=== PATIENT | female | born 1980 | race Caucasian/White ===

== ENCOUNTER 2017-06-15 00:29 | Emergency (ER) | payer BC ==
[2017-06-15 01:18] LABS: #Basophils 0.1 thou/uL (0.0-0.2); #Eosinphils 0.3 thou/uL (0.0-0.7); #Lymphocytes 3.4 thou/uL (1.20-3.40); #Monocytes 0.6 thou/uL (0.11-0.59); #Neutrophils 4.4 thou/uL (1.40-6.50); %Basophils 0.9 % (0.0-1.0); %Eosinophils 3.3 % (0.0-10.0); %Lymphocytes 38.6 % (21.0-51.0); %Monocytes 7.3 % (0.0-10.0); Hematocrit 39.1 % (36.0-47.0); Mean Platelet Volume 6.5 fL (7.4-10.4); Red Blood Cell (RBC) Count 4.13 mill/uL (4.20-5.40); White Blood Cell (WBC) Count 8.7 thou/uL (4.8-10.8)
[2017-06-15 01:35] LABS: ALT (SGPT) 10 U/L (8-55); AST (SGOT) 12 U/L (5-34); Alkaline Phosphatase 50 U/L (40-150); Anion Gap 12 mmol/L (10-20); BUN (Urea Nitrogen) 7 mg/dL (7.0-18.7); Bilirubin, Total 0.3 mg/dL (0.2-1.2); Calc. Creatinine Clearance 0 mL/min (70-130); Calcium 8.8 mg/dL (7.8-10.44); Carbon Dioxide 24 mmol/L (22-29); Chloride 107 mmol/L (98-107); Estimated GFR-MDRD 83; Globulin 2.9 g/dL (2.4-3.5); Lipase 12 U/L (8-78); Protein, Total 7.1 g/dL (6.0-8.3)
[2017-06-15 02:56] LABS: Bilirubin Small (Negative); Blood, Urine Negative (Negative); Glucose, Urine (Dipstick) Negative (Negative); Ketone, Urine Negative (Negative); Nitrite Negative (Negative); Protein, Urine (Dipstick) Negative (Neg-Trace); Urobilinogen 0.2 mg/dL (0.2-1.0)
== END 2017-06-15 03:14 | disposition left against medical advice (07) ==
LOC: ERS 00:29
DX: Z53.21 Procedure and treatment not carried out due to patient leaving prior to being seen by health care provider (principal); F31.9 Bipolar disorder, unspecified
CPT/HCPCS: 36415; 80053; 81003; 83690; 85025

== ENCOUNTER 2019-02-02 09:46 | Outpatient (CLI) | payer BC ==
--- NOTE | 2019-02-02 10:19 | ULT ---
EXAM: US Gallbladder RUQ CLINICAL HISTORY: Abdominal pain. COMPARISON: 02/04/2016 FINDINGS: Pancreas: Obscured due to bowel gas Liver:Normal echotexture. No hepatic masses or intrahepatic biliary dilatation. The contour of the he patic margin is maintained. Right hepatic lobe measures 18.1 cm. Portal vein: Patent with appropriate directional flow Gallbladder: No sonographic evidence of cholelithiasis, gallbladder wall thickening or pericholecysti c fluid. Lainez's sign:Negative Bile ducts: Suboptimal evaluation the common bile duct. Right kidney: No hydronephrosis. Right kidney measures 11.4 cm cm in length. IMPRESSION: 1. No sonographic evidence of cholelithiasis or cholecystitis. 2. Suboptimal evaluation the common bile duct. Further evaluation if clinically warranted.
--- NOTE | 2019-02-02 11:22 | RAD ---
Upper GI series with air contrast: 02/02/2019 HISTORY: 38-year-old female with epigastric abdominal pain. TECHNIQUE: Upright administration of effervescent granules, thick liquid barium, and barium tablet with water. Prone MENDOZA straw administration of thin liquid barium. FINDINGS: Approximately 10% of the stomach herniates into the lower chest. Mild gastroesophageal reflux visuali zed. No stricture. Mucosal pattern of the esophagus and stomach, where visible, demonstrates no obvious abnormality. No gastric outlet obstruction. Poor barium coating of duodenal bulb makes it dif ficult to evaluate duodenal bulb. Barium tablet passes rapidly through the esophagus into the stomach. IMPRESSION: 1. Small sliding hiatal hernia with mild gastroesophageal reflux. 2. No stricture.
== END 2019-02-02 09:47 | disposition home or self-care (01) ==
LOC: ULT 09:46
PROVIDERS: ATTEND Family Medicine
DX: R10.9 Unspecified abdominal pain (principal); K44.9 Diaphragmatic hernia without obstruction or gangrene; K21.9 Gastro-esophageal reflux disease without esophagitis
CPT/HCPCS: 74247; 76705

== ENCOUNTER 2020-03-11 09:29 | Outpatient (CLI) | payer BC ==
--- NOTE | 2020-03-11 10:06 | RAD ---
Exam: Lumbar spine 2 views HISTORY: Low back pain. COMPARISON: none FINDINGS: Visualized sacrum and bony pelvis are intact 5 lumbar type vertebra. Lumbar spine vertebral body heights are maintained. No fracture. No spondylol isthesis or spondylolysis. Preserved disc space heights IMPRESSION: No radiographic abnormalities. MRI if clinically indicated.
== END 2020-03-11 09:30 | disposition home or self-care (01) ==
LOC: BICRAD 09:29
PROVIDERS: ATTEND Family Medicine
DX: M54.5 Low back pain (principal)
CPT/HCPCS: 72100

== ENCOUNTER 2022-09-28 18:53 | Observation (INO) | payer BC ==
[2022-09-28 19:25] VITALS: BMI 36.9
[2022-09-28] MEDS ORDERED: Acetaminophen 325 MG TAB PO PRN (19:52)
[2022-09-28] MEDS ORDERED: Nitroglycerin 0.4 MG TAB (25 Tab Bottle) SL PRN (19:52)
[2022-09-28] MEDS ORDERED: Acetaminophen 500 MG TAB PO PRN (20:22)
[2022-09-28] MEDS: Morphine 2 MG/ML VIAL SLOW IVP PRN (20:27)
[2022-09-28 21:18] LABS: ALT (SGPT) 187 U/L (8-55); AST (SGOT) 79 U/L (5-34); Albumin 4.2 g/dL (3.5-5.0); Alkaline Phosphatase 77 U/L (40-110); Anion Gap 15 mmol/L (10-20); BUN (Urea Nitrogen) 10 mg/dL (7.0-18.7); Bilirubin, Total 0.7 mg/dL (0.2-1.2); Calc. Creatinine Clearance 155 mL/min (70-130); Calcium 9.4 mg/dL (7.8-10.44); Carbon Dioxide 20 mmol/L (22-29); Chloride 106 mmol/L (98-107); Estimated GFR 97; Globulin 3.4 g/dL (2.4-3.5); Glucose 73 mg/dL (70-105); Lipase 8 U/L (8-78); Potassium 3.8 mmol/L (3.5-5.1); Protein, Total 7.6 g/dL (6.0-8.3); Sodium 137 mmol/L (136-145)
[2022-09-28 21:23] LABS: Troponin I Less than 0.010 ng/mL (< 0.028)
[2022-09-28 23:39] LABS: Troponin I Less than 0.010 ng/mL (< 0.028)
[2022-09-28 23:56] LABS: HBCM Index 0.11 S/CO (0-0.79); HBSAg Index 0.22 S/CO (0-0.99); Hep A IgM AB Non-Reactive (NonReactive); Hep A IgM S/CO 0.18 S/CO (0-0.79); Hep B Surf Ag Non-Reactive S/CO (NonReactive); Hep C IgG Ab Non-Reactive (NonReactive); Hep C Index 0.12 S/CO (0-0.79); Hepatitis B Core IgM Abs Non-Reactive (NonReactive)
[2022-09-29 00:32] LABS: HIV (1/2) Antibody/Antigen Non-Reactive (NonReactive); HIV 1/2 INDEX 0.14 S/CO (<1.00)
[2022-09-29] MEDS: Morphine 2 MG/ML VIAL SLOW IVP PRN (03:28)
[2022-09-29 05:27] LABS: #Basophils 0.1 thou/uL (0.0-0.2); #Eosinphils 0.4 thou/uL (0.0-0.7); #Lymphocytes 2.3 thou/uL (1.20-3.40); #Monocytes 1.1 thou/uL (0.11-0.59); #Neutrophils 4.4 thou/uL (1.40-6.50); %Basophils 0.9 % (0.0-1.0); %Eosinophils 4.9 % (0.0-10.0); %Lymphocytes 27.6 % (21.0-51.0); %Monocytes 13.6 % (0.0-10.0); Hemoglobin 13.4 g/dL (12.0-16.0); Mean Corpuscular HGB CONC 33.5 g/dL (32.0-36.0); Mean Corpuscular Hemoglobin 31.1 pg (27.0-31.0); Mean Corpuscular Volume 92.9 fl (78.0-98.0); Mean Platelet Volume 7.1 fL (7.4-10.4); Platelet Count 352 10x3/uL (130-400); RBC Distribution Width 13.8 % (11.5-14.5); Red Blood Cell (RBC) Count 4.31 mill/uL (4.20-5.40); White Blood Cell (WBC) Count 8.2 10x3/uL (4.8-10.8)
[2022-09-29 05:31] LABS: Hemoglobin A1c 4.2 % (4.0-6.0)
[2022-09-29 05:47] LABS: ALT (SGPT) 161 U/L (8-55); AST (SGOT) 59 U/L (5-34); Albumin 3.9 g/dL (3.5-5.0); Alkaline Phosphatase 72 U/L (40-110); Anion Gap 13 mmol/L (10-20); BUN (Urea Nitrogen) 11 mg/dL (7.0-18.7); Bilirubin, Total 0.5 mg/dL (0.2-1.2); Calc. Creatinine Clearance 141 mL/min (70-130); Calcium 9.2 mg/dL (7.8-10.44); Carbon Dioxide 24 mmol/L (22-29); Cardiac Risk 2.3 (Less than 4.5); Chloride 104 mmol/L (98-107); Cholesterol 193 mg/dl (< 200 Desired); Estimated GFR 86; Globulin 3.2 g/dL (2.4-3.5); Glucose 89 mg/dL (70-105); HDL Cholesterol 83 mg/dL (>60 Neg Risk); LDL Cholesterol, Calculated 93 mg/dL; Potassium 3.7 mmol/L (3.5-5.1); Protein, Total 7.1 g/dL (6.0-8.3); Sodium 137 mmol/L (136-145); Triglycerides 85 mg/dL (Less than 150)
[2022-09-29] MEDS ORDERED: Aspirin Chewable 81 MG TAB PO SCH (09:00)
[2022-09-29 09:19] VITALS: BP 118/68; TEMP 98.5
== END 2022-09-29 12:35 | disposition home or self-care (01) ==
LOC: 2SW 18:53
PROVIDERS: ADMIT Family Medicine; ATTEND Family Medicine
DX: R07.89 Other chest pain (principal); R79.89 Other specified abnormal findings of blood chemistry; F17.290 Nicotine dependence, other tobacco product, uncomplicated; F10.90 Alcohol use, unspecified, uncomplicated; E66.9 Obesity, unspecified; Z68.36 Body mass index [BMI] 36.0-36.9, adult; Z79.899 Other long term (current) drug therapy
CPT/HCPCS: 36415; 80053; 80061; 80074; 83036; 83690; 84443; 84484; 85025; 87389; 93005; 93010; 96374; 96376; G0378; J2272

== ENCOUNTER 2023-01-22 10:08 | Emergency (ER) | payer BC ==
[2023-01-22 10:45] LABS: #Basophils 0.1 thou/uL (0.0-0.2); #Eosinphils 0.7 thou/uL (0.0-0.7); #Monocytes 0.8 thou/uL (0.11-0.59); #Neutrophils 6.2 thou/uL (1.40-6.50); %Basophils 0.7 % (0.0-1.0); %Eosinophils 7.4 % (0.0-10.0); %Lymphocytes 17.9 % (21.0-51.0); %Monocytes 8.4 % (0.0-10.0); %Neutrophils 65.1 % (42.0-75.0); Hemoglobin 14.3 g/dL (12.0-16.0); Mean Corpuscular HGB CONC 35.6 g/dL (32.0-36.0); Mean Corpuscular Hemoglobin 32.4 pg (27.0-31.0); Mean Platelet Volume 9.3 fL (7.4-10.4); Platelet Count 390 10x3/uL (130-400); RBC Distribution Width 14.2 % (11.5-14.5); Red Blood Cell (RBC) Count 4.42 mill/uL (4.20-5.40); White Blood Cell (WBC) Count 9.6 10x3/uL (4.8-10.8)
[2023-01-22 11:00] LABS: Bacteria/HPF None Seen HPF (None Seen); Bilirubin Negative (Negative); Blood, Urine 3+ (Negative); CAUTI Indications for Culture Dysuria,urgency,freq; Clarity Turbid (Clear); Glucose, Urine (Dipstick) Normal (Negative); Ketone, Urine Negative (Negative); Leukocyte Negative Leu/uL (Negative); Nitrite Negative (Negative); Protein, Urine (Dipstick) 20 mg/dL (Neg-Trace); RBC/HPF 21-50 HPF (0-3); Specific Gravity, Urine 1.026 (1.002-1.036); Urobilinogen Normal mg/dL (Less than 2); WBC/HPF 0-3 HPF (0-3)
[2023-01-22 11:04] LABS: Urine Culture Reflex No No
[2023-01-22 11:16] LABS: ALT (SGPT) 61 U/L (8-55); AST (SGOT) 53 U/L (5-34); Albumin 4.2 g/dL (3.5-5.0); Alkaline Phosphatase 77 U/L (40-110); Anion Gap 19 mmol/L (10-20); BUN (Urea Nitrogen) 7 mg/dL (7.0-18.7); Bilirubin, Total 0.4 mg/dL (0.2-1.2); Calc. Creatinine Clearance 0 mL/min (70-130); Calcium 8.9 mg/dL (7.8-10.44); Carbon Dioxide 19 mmol/L (22-29); Estimated GFR 100; Globulin 4.1 g/dL (2.4-3.5); Glucose 84 mg/dL (70-105); Lipase 12 U/L (8-78); Potassium 4.5 mmol/L (3.5-5.1); Protein, Total 8.3 g/dL (6.0-8.3)
[2023-01-22] MEDS ORDERED: Ondansetron PF 4 MG/2 ML Vial ONE (11:44)
[2023-01-22] MEDS ORDERED: Morphine 4 MG/ML VIAL ONE (11:44)
[2023-01-22 11:52] LABS: Chloride 107 mmol/L (98-107); Sodium 140 mmol/L (136-145)
[2023-01-22 12:11] LABS: BHCG - Serum Negative (NEGATIVE); Pregs Control Background? CLEAR/WHITE (CLR/WHITE); Pregs Control Bar Appear? YES (CONTROL BAR)
== END 2023-01-22 12:50 | disposition home or self-care (01) ==
LOC: ERS 10:08
DX: R10.11 Right upper quadrant pain (principal)
CPT/HCPCS: 36415; 76705; 80053; 81001; 83690; 84703; 85025; 96361; 96374; 96375; J2270; J2405

== ENCOUNTER 2024-03-21 13:23 | Emergency (ER) | payer BC ==
[2024-03-21 14:34] LABS: #Basophils 0.07 10x3/uL (0.0-0.2); %Basophils 0.7 % (0.0-1.0); %Lymphocytes 22.1 % (21.0-51.0); %Monocytes 9.7 % (0.0-10.0); %Neutrophils 64.9 % (42.0-75.0); Hematocrit 37.2 % (36.0-47.0); Hemoglobin 13.2 g/dL (12.0-16.0); Mean Corpuscular HGB CONC 35.5 g/dL (32.0-36.0); Mean Corpuscular Hemoglobin 31.7 pg (27.0-31.0); Mean Corpuscular Volume 89.2 fL (78.0-98.0); Mean Platelet Volume 9.1 fL (7.4-10.4); Platelet Count 405 10x3/uL (130-400); RBC Distribution Width 14.7 % (11.5-14.5); Red Blood Cell (RBC) Count 4.17 mill/uL (4.20-5.40)
[2024-03-21 14:57] LABS: ALT (SGPT) 22 U/L (8-55); AST (SGOT) 16 U/L (5-34); Albumin 3.6 g/dL (3.5-5.0); Alkaline Phosphatase 73 U/L (40-110); Anion Gap 15 mmol/L (10-20); BUN (Urea Nitrogen) 10 mg/dL (7.0-18.7); Bilirubin, Total 0.3 mg/dL (0.2-1.2); Calc. Creatinine Clearance 0 mL/min (70-130); Calcium 9.3 mg/dL (7.8-10.44); Carbon Dioxide 24 mmol/L (22-29); Chloride 105 mmol/L (98-107); Estimated GFR 93; Globulin 3.7 g/dL (2.4-3.5); Glucose 77 mg/dL (70-105); Lipase 16 U/L (8-78); Potassium 3.9 mmol/L (3.5-5.1); Protein, Total 7.3 g/dL (6.0-8.3); Sodium 140 mmol/L (136-145)
[2024-03-21 15:03] LABS: Troponin I Less than 0.010 ng/mL (< 0.028)
[2024-03-21] MEDS ORDERED: Aspirin Chewable 81 MG TAB ONE (16:50)
[2024-03-21] MEDS ORDERED: Ketorolac Tromethamine 30 MG (1 mL) VIAL ONE (16:50)
== END 2024-03-21 16:58 | disposition home or self-care (01) ==
LOC: ERS 13:23
DX: R07.89 Other chest pain (principal)
CPT/HCPCS: 36415; 71045; 80053; 83690; 84484; 85025; 93005; J1885